=== PATIENT | male | born 1980 | race Two or more races ===

== ENCOUNTER 2017-10-12 18:31 | Inpatient (IN) | payer OTHER ==
[2017-10-12 19:45] VITALS: BMI 23.6
--- NOTE | 2017-10-12 21:29 | HP ---
COWS - Scale Resting Pulse: 0= [place] 80 or Below Sweatin= Chills/Flushing Restless Observation: 3= Extraneous Movement Pupil Size: 1= Pupils >than Normal Bone or Joint Aches: 2= Severe Diffuse Aches Runny Nose/ Eye Tearin= Runny Nose/Eyes GI Upset > 30mins: 2= Nausea/Diarrhea Tremor Observation: 2= Slight Tremor Visible Yawning Observation: 1= 1-2x During Session Anxiety or Irritability: 2=Irritable/Anxious Goose Flesh Skin: 0=Smooth Skin COWS Score: 16 Admission [facility] Chief Complaint: withdrawal sx Allergies/Adverse Reactions: Allergies Allergy/AdvReac Type Severity Reaction Status Date / Time No Known Allergies Allergy Verified 06/26/15 14:48 History of Present Illness: 36 years old male with long history of heroin cocaine nicotine dependence has hepatitis c and depression is admitted to detox Exam Limitations: No Limitations - Ebola screening Have you traveled outside of the country in the last 21 days: No Have you had contact with anyone from an Ebola affected area: No Have you been sick,other than usual withdrawal symptoms: No Do you have a fever: No - Review of Systems Constitutional: Loss of Appetite, Changes in sleep, Unintentional Wgt. Loss, Unexplained wgt Loss EENT: reports: No Symptoms Reported Respiratory: reports: Productive cough (brownish) Cardiac: reports: No Symptoms Reported GI: reports: Diarrhea, Nausea, Poor Appetite, Poor Fluid Intake, Indigestion, Abdominal cramping : reports: No Symptoms Reported Musculoskeletal: reports: Back Pain, Joint Pain, Muscle Pain, Neck Pain Integumentary: reports: Change in Color (both inner elbows), Erythema (left hand ) Neuro: reports: Tremors Endocrine: reports: No Symptoms Reported Hematology: reports: No Symptoms Reported Psychiatric: reports: Judgement Intact, Orientated x3, Anxious, Depressed Other Systems: Reviewed and Negative Patient History - Patient Medical History Hx Anemia: No Hx Asthma: No Hx Chronic Obstructive Pulmonary Disease (COPD): No Hx Cancer: No Hx Cardiac Disorders: No Hx Congestive Heart Failure: No Hx Hypertension: No Hx Hypercholesterolemia: No Hx Pacemaker: No HX Cerebrovascular Accident: No Hx Seizures: No Hx Dementia: No Hx Diabetes: No Hx Gastrointestinal Disorders: Yes Hx Liver Disease: No Hx Genitourinary Disorders: No Hx Sexually Transmitted Disorders: No Hx Renal Disease (ESRD): No Hx Thyroid Disease: No Hx Human Immunodeficiency Virus (HIV): No (negative 2013) Hx Hepatitis C: Yes Hx Depression: Yes Hx Suicide Attempt: No Hx Bipolar Disorder: No Hx Schizophrenia: No - Patient Surgical History Past Surgical History: No Hx Neurologic Surgery: No Hx Cataract Extraction: No Hx Cardiac Surgery: No Hx Lung Surgery: No Hx Breast Surgery: No Hx Breast Biopsy: No Hx Abdominal Surgery: No Hx Appendectomy: No Hx Cholecystectomy: No Hx Genitourinary Surgery: No Hx Orthopedic Surgery: No - PPD History Previous Implant?: Yes Documented Results: Negative w/o proof Implanted On Prior R Admission?: No PPD to be Administered?: Yes - Smoking Cessation Smoking history: Current every day smoker Have you smoked in the past 12 months: Yes Aproximately how many cigarettes per day: 10 Cigars Per Day: 0 Hx Chewing Tobacco Use: No Initiated information on smoking cessation: Yes 'Breaking Loose' booklet given: 10/12/17 - Substance & Tx. History Hx Alcohol Use: No Hx Substance Use: Yes Substance Use Type: Cocaine, Heroin, Opiates Hx Substance Use Treatment: Yes (2013) - Substances Abused Heroin Route: Injection Frequency: Daily Amount used: 50 bags Age of first use: 16 Date of Last Use: 10/11/17 Cocaine Route: Injection Frequency: Daily Amount used: 250$ Age of first use: 27 Date of Last Use: 10/11/17 Family Disease History - Family Disease History Family Disease History: Heart Disease: Father (), Other: Father Admission Physical Exam BHS - Vital Signs Vital Signs: Vital Signs - 24 hr 10/12/17 19:43 Temperature 98.0 F Pulse Rate 74 Respiratory 18 Rate Blood Pressure 120/68 - Physical General Appearance: Yes: Appropriately Dressed, Moderate Distress, Thin, Tremorous, Irritable, Sweating, Anxious HEENTM: Yes: Hearing grossly Normal, Normal ENT Inspection, Normocephalic, Normal Voice Respiratory: Yes: Chest Non-Tender, Lungs Clear, Normal Breath Sounds, No Respiratory Distress, No Accessory Muscle Use Neck: Yes: Supple, Trachea in good position Breast: Yes: Breasts Symetrical Cardiology: Yes: Regular Rhythm, Regular Rate, S1, S2 Abdominal: Yes: Non Tender, Soft, Increased Bowel Sounds Genitourinary: Yes: Within Normal Limits Back: Yes: Normal Inspection Musculoskeletal: Yes: full range of Motion, Gait Steady, Back pain, Muscle Pain Extremities: Yes: Normal Range of Motion, Non-Tender, Tremors Neurological: Yes: Fully Oriented, Alert, Motor Strength 5/5, Normal Response, Depressed Affect Integumentary: Yes: Warm, Erythema (left hand), Track [place] Lymphatic: Yes: Within Normal Limits - Diagnostic (1) Opioid dependence with withdrawal Current Visit: Yes Status: Acute (2) Cocaine dependence, uncomplicated Current Visit: Yes Status: Chronic (3) Weight loss Current Visit: Yes Status: Acute (4) Hepatitis C Current Visit: Yes Status: Chronic Qualifiers: Viral hepatitis chronicity: unspecified Hepatic coma status: without hepatic coma Qualified Code(s): B19.20 - Unspecified viral hepatitis C without hepatic coma (5) Depression (emotion) Current Visit: Yes Status: Suspected Qualifiers: Depression Type: dysthymia Qualified Code(s): F34.1 - Dysthymic disorder (6) Nicotine dependence Current Visit: Yes Status: Acute Qualifiers: Nicotine product type: cigarettes Substance use status: in withdrawal Qualified Code(s): F17.213 - Nicotine dependence, cigarettes, with withdrawal Cleared for Admission [facility] - Detox or Rehab [facility] Level of Care: Medically Managed Detox Regimen/Protocol: Methadone [facility] Breath Alcohol Content Breath Alcohol Content: 0 Urine Drug Screen - Results Drug Screen Negative: No Urine Drug Screen Results: KARYN-Cocaine, OPI-Opiates, TCA-Tricyclic Antidepress
[2017-10-12] MEDS ORDERED: MENTHOL/PHENOL 1 EACH UD MM PRN (21:37)
[2017-10-12] MEDS ORDERED: NICOTINE POLACRILEX 2 MG GUM BC PRN (21:37)
[2017-10-12] MEDS ORDERED: MAG HYDROX/AL HYDROX/SIMETH 30 ML UNIT-DOSE CUP PO PRN (21:37)
[2017-10-12] MEDS ORDERED: P-EPHED 60MG/TRIPROLIDI 2.5MG TABLET PO PRN (21:37)
[2017-10-12] MEDS ORDERED: METHADONE HCL 10 MG TABLET (FOR DETOX USE ONLY) PO ONE ×2 (21:37→23:00)
[2017-10-12] MEDS ORDERED: MAGNESIUM HYDROX 2400MG/30ML ORAL SUSPENSION 30 ML CUP PO PRN (21:37)
[2017-10-12] MEDS ORDERED: ACETAMINOPHEN 325 MG TABLET (FP) PO PRN (21:37)
[2017-10-12] MEDS ORDERED: guaiFENesin/D-METHORPHAN HB 10 ML UNIT-DOSE CUPS PO PRN (21:37)
[2017-10-12] MEDS ORDERED: MAGNESIUM CITRATE 300 ML BOTTLE PO PRN (21:37)
[2017-10-12] MEDS ORDERED: LOPERAMIDE HCL 2 MG CAPSULE PO PRN (21:37)
[2017-10-12] MEDS: RANITIDINE HCL 150 MG TABLET (FP) PO SCH (23:36)
[2017-10-12] MEDS: BACITRACIN 0.9 GM PACKET TP SCH (23:37)
[2017-10-12] MEDS: THIAMINE HCL 100 MG TABLET (FP) PO SCH (23:37)
[2017-10-12] MEDS: diazePAM 5 MG TABLET PO PRN (23:37)
[2017-10-12] MEDS: MINERAL OIL/PETROLAT/WATER TOPICAL CREAM 113 GM JAR TP SCH (23:43)
[2017-10-13] MEDS: BACITRACIN 0.9 GM PACKET TP SCH ×3 (06:18→22:49)
[2017-10-13 08:02] LABS: URINE APPEARANCE SLCLOUDY; URINE BILIRUBIN NEGATIVE (NEGATIVE); URINE BLOOD NEGATIVE (NEGATIVE); URINE COLOR YELLOW; URINE GLUCOSE (UA) NEGATIVE (NEGATIVE); URINE KETONE TRACE (NEGATIVE); URINE LEUK ESTERASE NEGATIVE (NEGATIVE); URINE NITRITE NEGATIVE (NEGATIVE); URINE PROTEIN NEGATIVE (NEGATIVE); URINE UROBILINOGEN NEGATIVE mg/dL (0.2-1.0)
[2017-10-13] MEDS ORDERED: METHADONE HCL 10 MG TABLET (FOR DETOX USE ONLY) PO ONE (10:00)
[2017-10-13] MEDS: RANITIDINE HCL 150 MG TABLET (FP) PO SCH ×2 (10:50→22:44)
[2017-10-13] MEDS: PRENATAL VITAMINS W/ FOLIC ACID TABLET (FP) PO SCH (10:50)
[2017-10-13] MEDS: NICOTINE 14 MG/24 HOURS TOPICAL PATCH TD SCH (10:51)
[2017-10-13] MEDS: diazePAM 5 MG TABLET PO PRN ×3 (10:54→22:44)
[2017-10-13] MEDS ORDERED: PNEUMOC 13-VAL CONJ-DIP CRM/PF 0.5 ML DISP.SYRIN IM ONE (12:00)
[2017-10-13] MEDS ORDERED: PNEUMOCOCCAL 23 VACCINE 0.5 ML VIAL IM ONE (12:00)
[2017-10-13] MEDS ORDERED: FLU VACCINE QUAD 60 MCG/0.5 ML (MDV 17-18) IM ONE (12:00)
[2017-10-13] MEDS ORDERED: hydrOXYzine PAMOATE 50 MG CAPSULE (FP) PO PRN (12:45)
[2017-10-13] MEDS: LIDOCAINE 5% TOPICAL PATCH TP SCH (12:57)
--- NOTE | 2017-10-13 13:10 | EKG ---
Test Reason : Blood Pressure : / mmHG Vent. Rate : 072 BPM Atrial Rate : 072 BPM P-R Int : 122 ms QRS Dur : 090 ms QT Int : 416 ms P-R-T Axes : 038 076 052 degrees QTc Int : 455 ms NORMAL SINUS RHYTHM NORMAL ECG WHEN COMPARED WITH ECG OF 12-OCT-2017 23:43, NO SIGNIFICANT CHANGE WAS FOUND Confirmed by RHEA LADD MD ([id number]) on 10/13/2017 1:10:22 PM Referred By: Confirmed By:RHEA LADD MD
[2017-10-13] MEDS: cloNIDine HCL 0.1 MG TABLET PO PRN ×2 (13:49→22:47)
--- NOTE | 2017-10-13 14:20 | PN ---
S Progress Note Note: Physical Education Specialist approached patient for psychiatric consultation. Pt. refused.
--- NOTE | 2017-10-13 14:20 | PN ---
BHS COWS - Scale Resting Pulse: 0= [place] 80 or Below Sweatin=Flushed/Facial Moisture Restless Observation: 3= Extraneous Movement Pupil Size: 0= Normal to Room Light Bone or Joint Aches: 2= Severe Diffuse Aches Runny Nose/ Eye Tearin= Runny Nose/Eyes GI Upset > 30mins: 3= Vomiting/Diarrhea Tremor Observation of Outstretched Hands: 2= Slight Tremor Visible Yawning Observation: 1= 1-2x During Session Anxiety or Irritability: 2=Irritable/Anxious Goose Flesh Skin: 0=Smooth Skin COWS Score: 17 BHS Progress Note (SOAP) Subjective: Sweating, chills, diarrhea, interrupted sleep, agitated, irritable Objective: 10/13/17 14:18 Last Vital Signs Temp Pulse Resp BP Pulse Ox 98.4 F 75 18 132/74 10/13/17 13:48 10/13/17 13:48 10/13/17 13:48 10/13/17 13:48 Laboratory Tests 10/12/17 23:00 Urine Color Yellow Urine Appearance Slcloudy Urine pH 5.0 D Ur Specific [place] 1.025 Urine Protein Negative Urine Glucose (UA) Negative Urine Ketones Trace H Urine Blood Negative Urine Nitrite Negative Urine Bilirubin Negative Urine Urobilinogen Negative UA noted Assessment: 10/13/17 14:18 Withdrawal symptoms Plan: Continue detox Encouraged to drink lots of water
[2017-10-13 19:20] LABS: URINE LEUK ESTERASE Negative (NEGATIVE)
[2017-10-13] MEDS ORDERED: LIDOCAINE PATCH REMOVAL MC SCH (22:00)
[2017-10-13] MEDS: THIAMINE HCL 100 MG TABLET (FP) PO SCH (22:44)
[2017-10-13] MEDS: MINERAL OIL/PETROLAT/WATER TOPICAL CREAM 113 GM JAR TP SCH (22:49)
[2017-10-14] MEDS: BACITRACIN 0.9 GM PACKET TP SCH (06:17)
[2017-10-14] MEDS ORDERED: METHADONE HCL 5 MG TABLET (FOR DETOX USE ONLY) PO ONE (10:00)
[2017-10-14] MEDS: NICOTINE 14 MG/24 HOURS TOPICAL PATCH TD SCH (10:10)
[2017-10-14] MEDS: RANITIDINE HCL 150 MG TABLET (FP) PO SCH (10:10)
[2017-10-14] MEDS: PRENATAL VITAMINS W/ FOLIC ACID TABLET (FP) PO SCH (10:10)
[2017-10-14 10:11] VITALS: BP 108/58; PULSE 115; TEMP 96.8
[2017-10-14] MEDS: LIDOCAINE 5% TOPICAL PATCH TP SCH (10:12)
--- NOTE | 2017-10-14 17:05 | DS ---
[facility] Detox Discharge Summary Admission Date: 10/12/17 Discharge Date: 10/14/17 - History Present History: Cocaine Dependence, Opioid Dependence Additional Comments: Patient encouraged to stay and complete detox but he stated that he has been using $300 worth of dope daily and methadone 20mg cannot help him. As per patient, he wanted to go to [facility] rehab but he was told by his counselor that they have no available bed. As per patient, he understands and appreciates marketing underwriter's concerns but he will leave no matter what. Pertinent Past History: GERD Hepatitis C - Physical Exam Results Vital Signs: Vital Signs Temperature 96.8 F L 10/14/17 10:00 Pulse Rate 115 H 10/14/17 10:00 Respiratory Rate 20 10/14/17 10:00 Blood Pressure 108/58 10/14/17 10:00 O2 Sat by Pulse Oximetry (%) Pertinent Admission Physical Exam Findings: Withdrawal symptoms Laboratory Tests 10/12/17 23:00 Urine Color Yellow Urine Appearance Slcloudy Urine pH 5.0 D Ur Specific [place] 1.025 Urine Protein Negative Urine Glucose (UA) Negative Urine Ketones Trace H Urine Blood Negative Urine Nitrite Negative Urine Bilirubin Negative Urine Urobilinogen Negative Ur Leukocyte Esterase Negative Labs noted - Medication Discharge Medications: Ambulatory Orders NK [No Known Home Medication] 10/12/17 - Diagnosis (1) GERD (gastroesophageal reflux disease) Status: Acute (2) Nicotine dependence Status: Chronic Qualifiers: Nicotine product type: cigarettes Substance use status: in withdrawal Qualified Code(s): F17.213 - Nicotine dependence, cigarettes, with withdrawal (3) Opioid dependence with withdrawal Status: Acute (4) Cocaine dependence, uncomplicated Status: Chronic (5) Hepatitis C Status: Chronic Qualifiers: Viral hepatitis chronicity: chronic Hepatic coma status: without hepatic coma Qualified Code(s): B18.2 - Chronic viral hepatitis C (6) Depression (emotion) Status: Chronic Qualifiers: Depression Type: major depressive disorder - AMA Did Patient Leave Against Medical Advice: Yes (F/U with PCP within 3 days)
[2017-10-15] MEDS ORDERED: METHADONE HCL 5 MG TABLET (FOR DETOX USE ONLY) PO ONE (10:00)
[2017-10-16] MEDS ORDERED: METHADONE HCL 10 MG TABLET (FOR DETOX USE ONLY) PO ONE (10:00)
[2017-10-17] MEDS ORDERED: METHADONE HCL 5 MG TABLET (FOR DETOX USE ONLY) PO ONE (06:00)
== END 2017-10-14 11:03 | disposition left against medical advice (07) | DRG 770 ==
LOC: YASAS 18:31 → Y6N 22:00
PROVIDERS: ADMIT Internal Medicine; ATTEND Internal Medicine
PROC: HZ2ZZZZ Detoxification Services for Substance Abuse Treatment (ICD-10-PCS; principal; 2017-10-12)
DX: F11.23 Opioid dependence with withdrawal (principal); F14.20 Cocaine dependence, uncomplicated; F17.213 Nicotine dependence, cigarettes, with withdrawal; F32.9 Major depressive disorder, single episode, unspecified; K21.9 Gastro-esophageal reflux disease without esophagitis; B18.2 Chronic viral hepatitis C
CPT/HCPCS: 81003; 93005; 93010

== ENCOUNTER 2019-04-03 14:48 | Inpatient (IN) | payer OTHER | END 2019-04-05 09:22 | disposition left against medical advice (07) | LOC: YASAS 14:48 → Y3N 23:04 ==

== ENCOUNTER 2024-12-11 08:53 | Inpatient (IN) | payer OTHER ==
[2024-12-11 15:29] VITALS: BMI 23.1
[2024-12-11] MEDS ORDERED: DICYCLOMINE HCL 10 MG CAPSULE PO PRN (15:47)
[2024-12-11] MEDS ORDERED: BENZOCAINE/MENTHOL (CHLORASEPTIC ) LOZENGE MM PRN (15:47)
[2024-12-11] MEDS ORDERED: MAGNESIUM HYDROX 2400MG/30ML ORAL SUSPENSION 30 ML CUP PO PRN (15:47)
[2024-12-11] MEDS ORDERED: BISMUTH SUBSALICYLATE 262 MG/15 ML BTL PO PRN (15:47)
[2024-12-11] MEDS ORDERED: P-EPHED 60MG/TRIPROLIDI 2.5MG TABLET PO PRN (15:47)
[2024-12-11] MEDS ORDERED: POLYETHYLENE GLYCOL (HEALTHYLAX) 3350 17 GM PACKET PO PRN (15:47)
[2024-12-11] MEDS ORDERED: IBUPROFEN 400 MG TABLET (FP) PO PRN (15:47)
[2024-12-11] MEDS ORDERED: cloNIDine HCL 0.1 MG TABLET PO PRN (15:47)
[2024-12-11] MEDS ORDERED: METHOCARBAMOL 500 MG TABLET PO PRN (15:47)
[2024-12-11] MEDS ORDERED: NALOXONE (NARCAN) HCL 4 MG/0.1 ML SPRAY NS PRN (15:47)
[2024-12-11] MEDS ORDERED: LOPERAMIDE HCL 2 MG CAPSULE PO PRN (15:47)
[2024-12-11] MEDS ORDERED: MAG HYDROX/AL HYDROX/SIMETH 30 ML UNIT-DOSE CUP PO PRN (15:47)
[2024-12-11] MEDS ORDERED: NICOTINE POLACRILEX 2 MG LOZENGE BC PRN (15:47)
[2024-12-11] MEDS ORDERED: BENZONATATE 200 MG CAPSULE PO PRN (15:47)
[2024-12-11] MEDS ORDERED: ACETAMINOPHEN 325 MG TABLET (FP) PO PRN (15:47)
[2024-12-11] MEDS ORDERED: guaiFENesin 600 MG TABLET.ER (FP) PO PRN (15:47)
[2024-12-11] MEDS ORDERED: NICOTINE POLACRILEX 2 MG GUM BUC PRN (15:47)
[2024-12-11] MEDS: methaDONE HCL 10 MG TABLET (FOR DETOX USE ONLY) PO ONE (16:35)
[2024-12-11] MEDS: ONDANSETRON *ODT* 4 MG TABLET SL PRN (16:50)
[2024-12-11] MEDS: CEPHALEXIN MONOHYDRATE 500 MG CAPSULE (UD) PO SCH (18:14)
[2024-12-11] MEDS: THIAMINE 100 MG TABLET PO SCH (22:08)
[2024-12-11] MEDS: MELATONIN 5 MG TABLETS PO SCH (22:08)
[2024-12-11] MEDS: SULFAMETHOXAZOLE/TRIMETHOPRIM 800MG/160MG D.S. TABLET PO SCH (22:09)
[2024-12-12] MEDS: BACITRACIN 0.9 GM PACKET TP SCH (09:49)
[2024-12-12] MEDS: PRENATAL VITAMINS W/ FOLIC ACID TABLET (FP) PO SCH (09:50)
[2024-12-12] MEDS: methaDONE HCL 10 MG TABLET (FOR DETOX USE ONLY) PO ONE (09:51)
[2024-12-12] MEDS: IBUPROFEN 600 MG TABLET (FP) PO PRN (17:31)
[2024-12-13 15:14] LABS: HEMATOCRIT 39.4 % (35.4-49); MCH 30.6 pg (25.7-33.7); MEAN CELL VOLUME 92.7 fl (80-96); MEAN PLT VOLUME 8.7 fl (7.5-11.1); PLATELET COUNT 381 10^3/uL (134-434); RBC 4.25 M/mm3 (4.00-5.60); WHITE BLOOD COUNT 6.6 K/mm3 (4.0-10.0)
[2024-12-13 15:22] LABS: ALBUMIN 3.4 g/dl (3.4-5.0); BLOOD UREA NITROGEN 9.3 mg/dL (7-18); CALCIUM 9.4 mg/dL (8.5-10.1)
[2024-12-13 15:25] LABS: CREATININE 0.9 mg/dL (0.55-1.3)
[2024-12-13 15:27] LABS: BILIRUBIN,TOTAL 0.4 mg/dL (0.2-1); TOT PROT 7.2 g/dl (6.4-8.2)
[2024-12-14] MEDS: methaDONE HCL 10 MG TABLET (FOR DETOX USE ONLY) PO ONE (09:32)
[2024-12-15 17:13] VITALS: RESP 16
[2024-12-16] MEDS: methaDONE HCL 10 MG TABLET (FOR DETOX USE ONLY) PO ONE (09:11)
[2024-12-17 08:51] VITALS: BP 131/73; PULSE 61; TEMP 97.6
== END 2024-12-17 10:10 | disposition home or self-care (01) | DRG 773 ==
LOC: YASAS 08:53 → Y6N 16:51
PROVIDERS: ADMIT Allergy & Immunology; ATTEND Allergy & Immunology
PROC: HZ2ZZZZ Detoxification Services for Substance Abuse Treatment (ICD-10-PCS; principal; 2024-12-11)
DX: F11.23 Opioid dependence with withdrawal (principal); F14.20 Cocaine dependence, uncomplicated; F12.10 Cannabis abuse, uncomplicated; F17.210 Nicotine dependence, cigarettes, uncomplicated; L03.115 Cellulitis of right lower limb; A49.02 Methicillin resistant Staphylococcus aureus infection, unspecified site; Z59.02 Unsheltered homelessness
CPT/HCPCS: 36415; 80053; 80305; 80307; 85027; 86780; 93005; 93010; 99282-25; Q0162